=== PATIENT | male | born 1980 | race Caucasian/White ===

== ENCOUNTER 2025-05-20 00:31 | Day surgery (SDC) | payer OTHER, SELFPAY ==
[2025-02-28 08:45] VITALS: BMI 25.1
[2025-05-20 08:19] VITALS: BP 120/81; PULSE 83; RESP 17; TEMP 36.7; O2SAT 99; BMI 24.7
--- NOTE | 2025-05-20 08:24 | WPDANESEPPF ---
Anes - Initial Pre Proc Eval Procedure: Operation Date: 05/20/25 09:30 Proposed Procedures p Screening Colonoscopy - Shahbaz Meza DO Date/Time: 05/20/25 08:24 Surgeon: Shahbaz Meza DO Pre Op Diagnosis: Neoplasm screening Patient Data Age: 44 Gender: M Height: 1.73 m Weight: 73.8 kg Last Vital Signs Temp 36.7 C 05/20/25 08:19 Pulse 83 05/20/25 08:19 Resp 17 05/20/25 08:19 BP 120/81 05/20/25 08:19 Pulse Ox 99 05/20/25 08:19 O2 Del Method Room Air 05/20/25 08:19 Allergies Allergy/AdvReac Type Severity Reaction Status Date / Time No Known Allergies Allergy Verified 05/20/25 08:18 Home Medications ?Medication ?Instructions ?Recorded ?Confirmed ?Type No Home Medications 02/13/23 02/28/25 History Patient hx anesthesia problems: none Family hx anesthesia problems: none Results Review: All pre-operative results and documents have been reviewed as part of the pre-operative evaluation. [facility] Past Medical History Medical History Screening for prostate cancer Mixed hyperlipidemia BMI 25.0-25.9,adult Well adult health check Right lateral epicondylitis Encounter for screening for lipoid disorders Dietary counseling and surveillance (12/27/18) Surgical History Surgical History H/O vasectomy Family History Family History Father Hypertension Mother A-fib Sibling History of kidney cancer Social History Social History Smoking status: Never smoker Second hand tobacco smoke exposure: Yes Alcohol intake: current Drinks per week: 6 Alcohol use details: Red wine Substance use: never Substance use type: does not use Lack of Transportation: No Lack of Food: Never True Current Housing: I Have Housing Concerned About Future Housing: No Difficulty Paying Gas/Electric Bills: No Difficulty Paying for Meds: No Currently Unemployed: No Education: Master's Degree or Higher Difficulty w/ Childcare or Family Care: No Living arrangements: with family Additional living arrangements comments: with sp Occupation/Education: occupation 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 Informed Consent: The patient's anesthetic plan and its attendant risks and benefits were discussed with the patient/family/POA. Questions were solicited and answers provided to the satisfaction of the patient/family/POA.
[2025-05-20] MEDS: LACTATED RINGERS 1,000 ML 150 ML IV CONT (08:27)
--- NOTE | 2025-05-20 09:21 | PM.IMHP2 ---
H&P: HPI History of Present Illness Date/Time: 05/20/25 09:21 Chief Complaint: Screening for colorectal cancer Narrative: This is a 44-year-old man who presents for his 1st colonoscopy. He denies any hematochezia or melena. He denies family history of colon cancer. Review of Systems Review of Systems: All systems reviewed & are unremarkable except as noted in HPI and below Constitutional: Constitutional: Denies chills, Denies fever(s), Denies headache(s) and Denies weight loss Eyes: Eyes: Denies change in vision ENT: Denies dizziness, Denies headache(s), Denies neck mass and Denies throat swelling Cardiovascular: Cardiovascular: Denies chest pain, Denies lightheadedness and Denies dyspnea Respiratory: Respiratory: Denies cough, Denies dyspnea and Denies wheezing Gastrointestinal: Gastrointestinal: Denies abdominal pain, Denies change in bowel habits, Denies nausea and Denies vomiting Genitourinary: Genitourinary: Denies hematuria and Denies dysuria Musculoskeletal: Musculoskeletal: Reports as per HPI Integumentary/Breasts: Skin/Breast: Reports as per HPI Neurologic: Denies dizziness and Denies headache(s) Allergic/Immunologic: Allergic/Immunologic: Denies throat swelling and Denies wheezing PMFSH Past Medical History Medical History Screening for prostate cancer Mixed hyperlipidemia BMI 25.0-25.9,adult Well adult health check Right lateral epicondylitis Encounter for screening for lipoid disorders Dietary counseling and surveillance (12/27/18) Surgical History Surgical History H/O vasectomy Family History Family History Father Hypertension Mother A-fib Sibling History of kidney cancer Social History Social History Smoking status: Never smoker Second hand tobacco smoke exposure: Yes Alcohol intake: current Drinks per week: 6 Alcohol use details: Red wine Substance use: never Substance use type: does not use Lack of Transportation: No Lack of Food: Never True Current Housing: I Have Housing Concerned About Future Housing: No Difficulty Paying Gas/Electric Bills: No Difficulty Paying for Meds: No Currently Unemployed: No Education: Master's Degree or Higher Difficulty w/ Childcare or Family Care: No Living arrangements: with family Additional living arrangements comments: with sp Occupation/Education: occupation 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 Gender identity (if verbalized by the patient): Male Meds Home Medications and Allergies Home Medications ?Medication ?Instructions ?Recorded ?Confirmed ?Type No Home Medications 02/13/23 02/28/25 History Allergies Allergy/AdvReac Type Severity Reaction Status Date / Time No Known Allergies Allergy Verified 05/20/25 08:18 Vital Signs Vital Signs - 24 hr 05/20/25 08:19 Temperature 98.0 F Pulse Rate 83 Respiratory Rate 17 Blood Pressure 120/81 Pulse Oximetry 99 Oxygen Delivery Room Air Exam Const: General: no acute distress and alert Orientation/consciousness: patient oriented x3 HENMT: Head: normocephalic and atraumatic Ears: hearing grossly normal bilaterally Face/Nose/Sinus: Normal nares present Mouth: Yes Normal oral and palatal mucosa present Eyes: Periorbital: periorbital findings normal Sclera: sclerae normal EOM: EOMs intact bilaterally Neck: Neck: normal visual inspection, no lymphadenopathy and trachea midline Chest: Chest palpation & inspection: normal inspection of the chest Resp: Effort & Inspection: normal respiratory effort Auscultation: clear to auscultation bilaterally Cardio: Jugular venous distension: no JVD Rate: regular rate Rhythm: regular rhythm Heart sounds: S1 normal heart sound present and S2 normal heart sound present Peripheral pulses: Peripheral pulses 2+ throughout GI: Inspection: normal to inspection GI Palp: Yes Soft to palpation, No Tenderness to palpation present (GI), No Guarding due to palpation present (GI) and No Rebound tenderness present Percussion: Yes normal to percussion Auscultation: normal bowel sounds : General: Yes no CVA tenderness Back/Spine/Pelvis: Back: no CVA tenderness Neuro: General: patient oriented x3, no focal motor deficits and CN's II-XI intact bilaterally Cognition (Neuro): normal cognition Speech: normal speech Motor exam (neuro): 5/5 motor strength present throughout Extrem: General: capillary refill normal and no clubbing, cyanosis or edema Assessment and Plan Assessment and plan (1) Screen for colon cancer: Code(s): Z12.11 - Encounter for screening for malignant neoplasm of colon Status: Acute Assessment and Plan: I have recommended colonoscopy. I have discussed the procedure, risks, benefits, and alternatives. Questions were answered. Patient is agreeable to proceed.
--- NOTE | 2025-05-20 09:57 | S_PTH ---
PATIENT: Cornell Wolfe LOC: [facility] #:[id number] AGE/SX: 44/M ROOM: RE05/20/[address]: Shahbaz Meza DO : 1980 BED: DIS: 05/20/2025 SPEC #: [id number] RECD: 05/20/25 10:57 STATUS: [facility] #: [id number] ZAID: 05/20/25 09:[address]: Shahbaz Meza DEPT: [facility] RECD BY: Tonio Armendariz ENTERED: 05/20/25 10:57 SP TYPE: Surgical OTHR DR: Bryce Rome MD Tissues: A - Colon Polypectomy Procedures: Hematoxylin and Eosin Stain Gross and Microscopic Level 4
[2025-05-20 10:00] VITALS: BP 101/69; PULSE 71; RESP 17; O2SAT 97
[2025-05-20 10:10] VITALS: BP 112/78; PULSE 68; RESP 16; O2SAT 99
[2025-05-20 10:20] VITALS: BP 121/93; PULSE 64; RESP 17; O2SAT 100
== END 2025-05-20 10:26 | disposition home or self-care (01) ==
PROVIDERS: PCP Family Medicine; Visit Provider Surgery
PROC: 0DJD8ZZ Inspection of Lower Intestinal Tract, Via Natural or Artificial Opening Endoscopic (ICD-10-PCS; CPT 45378; principal; 2025-05-20 09:30)
DX: Z12.11 Encounter for screening for malignant neoplasm of colon (principal); K63.5 Polyp of colon
CPT/HCPCS: 45380; 88305; J2704; J7120